=== PATIENT | female | born 1950 | race African-American/Black ===

== ENCOUNTER 2016-05-11 01:14 | Emergency (ER) | payer MEDICARE ==
--- NOTE | ~2016-05-11 | EKG ---
PATIENT: ROSMERY DUARTE UNIT #: [id number] Ventricular Rate: 105 BPM Atrial Rate: 105 BPM P-R Interval: 156 ms QRS Duration: 118 ms Q-T Interval: 366 ms QTC Calculation(Bezet): 483 ms P [place]: 79 degrees Calculated R [place]: -68 degrees Calculated T [place]: 59 degrees Diagnosis Line: Sinus tachycardia Diagnosis Line: Left axis deviation Diagnosis Line: Right bundle branch block Diagnosis Line: Abnormal ECG Diagnosis Line: When compared with ECG of 11-MAY-2016 01:25, Diagnosis Line: (unconfirmed) Diagnosis Line: No significant change was found Diagnosis Line: Confirmed by LINDSAY LOOMIS MD ([id number]) on Diagnosis Line: 05/12/2016 12:05:25 AM INTERPRETING MD: EBONIE REDDING
--- NOTE | ~2016-05-11 | CT71 ---
[facility] A Service of [facility] RADIOLOGY TEXT RESULTS PATIENT: ROSMERY DUARTE LOCATION: [facility] : 46 UNIT #: [id number] AGE: [address]: Trevor Ojeda MD SEX: F ORDER DR: [id number] [facility]. [place], [place] [address] [id number] E MR#: [id number] #: [id number] NAME: ROSMERY DUARTE : 1950 SEX: F STUDY DATE/TIME: 05/11/2016 0:46 UNIT: [facility] ROOM: STUDY DESCRIPTION: CT Head Wo Contrast Attending Physician: Trevor Ojeda M.D. Ordering Physician: Trevor Ojeda M.D. Primary Care Physician: Petty Seals M.D. MEDICAL IMAGING REPORT This report is preliminary unless electronic signature is present EXAM Noncontrast CT head 05/11/2016 at 00:46. HISTORY Headache, nausea and vomiting for one hour prior to arrival tonight. No documented injury. Previous history of stroke. Hypertension. Diabetes. Cardiac disease. COMPARISON CT head without contrast and CTA head 01/06/2016. PROCEDURE This CT exam was performed with one or more of the following radiation dose reduction techniques: automatic exposure control, adjustment of mA and/or kV according to patient size, and iterative reconstruction. FINDINGS No acute intracranial hemorrhage, atrophy, mid lung shifts seen. There is no evidence acute or evolving infarct. Dense bilateral vertebral artery and chronic calcifications are present. Paranasal sinuses and mastoid air cells are clear. No calvarial abnormality. IMPRESSION No acute intracranial findings. No significant change compared to 01/06/2016. Dictated by... Vandana Post M.D. THIS IS AN ELECTRONICALLY VERIFIED REPORT [facility] A Service of [facility] RADIOLOGY TEXT RESULTS PATIENT: ROSMERY DUARTE LOCATION: [facility] : 46 UNIT #: [id number] AGE: [address]: Trevor Ojeda MD SEX: F ORDER DR: Vandana Post M.D. at 05/11/2016 9:56 PM PARAMJIT/micheline TD: 05/11/2016 11:08 JOB #: [id number] MEDICAL IMAGING REPORT COPY
[~2016-05-11 01:14] MED LIST: ACETAMINOPHEN PO; AGGRENOX; ATENOLOL; GLUCOPHAGE XR500 MG; GLUCOTROL; GLUCOTROL XL; KCL; LISINOPRIL PO; METFORMIN; PROTONIX PO; SULAR
[2016-05-11 04:18] LABS: BASOPHIL% 0.3 % (0-2.5); EOSINOPHIL% 0.3 % (0.0-7.0); HEMATOCRIT 38.4 % (35.0-45.0); HEMOGLOBIN 12.6 gm/dL (12.0-16.0); LYMPHOCYTE# 1.4 X10e3 (1.0-3.5); LYMPHOCYTE% 14.3 % (17.0-45.0); MEAN CELL VOLUME 90.4 FL (83-96); MEAN CORPUSCULAR HEMOGLOBIN 29.6 PG (28-34); MEAN CORPUSCULAR HGB CONC 32.7 g/dL (30-36); MONOCYTE# 0.3 X10e3 (0-1.0); MONOCYTE% 2.7 % (3.0-12.0); NEUTROPHIL# 8.3 X10e3 (1.5-7.1); NEUTROPHIL% 82.4 % (40-75); PLATELET COUNT 235 X10e3 (140-420); RED BLOOD COUNT 4.25 X10e (3.90-5.30); RED CELL DISTRIBUTION WIDTH 12.5 % (11.0-15.5); WHITE BLOOD COUNT 10.1 X10e3 (4.0-10.5)
[2016-05-11 04:20] LABS: DIFF IND NO
[2016-05-11 05:00] LABS: BLOOD UREA NITROGEN 12 mg/dL (9-23); BUN/CREATININE RATIO 17.14; CALCIUM SERUM 8.8 mg/dL (8.4-10.2); CARBON DIOXIDE 23 mmol/L (22-31); CHLORIDE 103 mmol/L (100-111); CREATININE SERUM 0.7 mg/dL (0.6-1.4); GLOM FILT RATE Estimated ABOVE60 mL/min (>60); GLUCOSE FASTING 196 mg/dL (70-110); POTASSIUM 4.3 mmol/L (3.5-5.1); SODIUM 137 mmol/L (135-145)
== END 2016-05-11 06:00 | disposition home or self-care (01) ==
LOC: CED 01:14
PROVIDERS: Emergency Medicine
DX: R51 Headache (principal); E11.9 Type 2 diabetes mellitus without complications; I10 Essential (primary) hypertension; E78.5 Hyperlipidemia, unspecified; Z79.899 Other long term (current) drug therapy
CPT/HCPCS: 70450; 80048; 82947; 85025; 93005; 96372; 99284